=== PATIENT | female | born 1935 | race Caucasian/White ===

== ENCOUNTER 2018-01-27 15:40 | Emergency (ER) | payer MEDICARE, BC, OTHER ==
[~2018-01-27] VITALS: Ht 165.1 cm; Wt 66.3 kg
[~2018-01-27 15:40] MED LIST: ACETAMINOPHEN325 M1 PO; ALEVE220 MG PO; AMLODIPINE BESYL5 MG PO; ARICEPT 5 MG TAB5 MG PO; ARTIFICIAL TEA1 EACH INTRAOCULR; ASPIRIN325 PO; BIOTIN 500 MCG PO; BIOTIN5 M1 PO; BIOTIN5 MG PO; CLARITIN10 MG PO; CLONAZEPAM 0.50.5 M1 PO; DICLOFENAC SODI75 MG PO; DOCUSATE SODIU100 MG PO; EFFEXOR XR150 MG PO; EFFEXOR XR75 MG PO; EFFEXOR75 MG PO; Effexor PO; FISH OIL 1,2001 EAC3 PO; FLONASE 0.05%50 MCG NASAL; FOLIC ACID 40400 MC1 PO; HYDROCODON-ACE1 EAC7 PO; HYDROXYCHLOROQ200 M1 PO; IRON325 PO; LISINOPRIL10 MG PO; LOVASTAT40; LOVASTATIN 20 M20 MG PO; LOVENOX; METAMUCIL1 EAC1 PO; MEVACOR40 MG PO; MILK OF MA2400 MG/10 PO; MURO-12815 ML/BOT; NITROFURANTOIN100 MG PO; NORCO 10-325 T1 EAC1 PO; ONE-A-DAY WOMENS PO; OXYCODONE HCL5 M1 PO; OXYIR5 MG PO; PEPCID20 MG PO; PERCOCET 5-3251 EACH PO; PLAVIX 75 MG TA75 MG PO; PRINIVIL5 MG PO; PROPOXY-N-APAP1 EACH PO; PROTONIX40 M2 PO; SANCTURA20 MG PO; SENEXON-S TABL1 EACH PO; SUPER B COMPLE1 EAC2 PO; TRAMADOL 50 MG50 MG PO; VENLAFAXIN75 MG/1 T2 PO; VITAMIN B-12500 MCG PO; VITAMIN E400 UNI6 PO; XARELTO10 M1 PO; ZANTAC 150MG T150 MG PO; ZINC CHELATE50 MG PO
[2018-01-27] MEDS ORDERED: ZYRTEC 10 MG TA10 MG PO (15:53)
[2018-01-27] MEDS ORDERED: CEROVITE SENIO1 EACH PO (15:53)
[2018-01-27 16:03] LABS: ABSOLUTE EOSINOPHILS 0.2 thou/uL (0.0-0.7); ABSOLUTE LYMPHOCYTES 1.7 thou/uL (0.8-5.3); ABSOLUTE MONOCYTES 0.7 thou/uL (0.0-1.2); ABSOLUTE NEUTROPHILS 3.2 thou/uL (1.6-8.1); BASOPHILS 0.4 %; EOSINOPHILS 3.4 %; HEMATOCRIT 36.3 % (37.0-47.0); HEMOGLOBIN 11.8 gm/dL (12.0-15.0); LYMPHOCYTES 28.5 %; MCH 31.3 pg (26.0-34.0); MCHC 32.4 g/dL (28.0-37.0); MCV 96.8 fL (80.0-100.0); MONOCYTES 12.4 %; MPV 7.9 fl. (7.2-11.1); NUCLEATED RBCS 0 /100WBC; PLATELET COUNT* 206 thou/uL (150-400); POLYS 55.3 %; RBC 3.75 mil/uL (4.20-5.00); RDW-CV 14.4 % (10.5-14.5); WBC 5.8 thou/uL (4.0-11.0)
[2018-01-27 16:16] LABS: APTT 26.1 Seconds (25.0-31.3)
[2018-01-27 16:18] LABS: CALCIUM 8.5 mg/dL (8.5-10.1); POTASSIUM 3.9 mmol/L (3.5-5.1)
[2018-01-27 16:29] LABS: ALBUMIN 2.9 g/dL (3.4-5.0); TOTAL BILIRUBIN 0.2 mg/dL (<0.1-1.0); TOTAL PROTEIN 6.3 g/dL (6.4-8.2)
[2018-01-27 16:40] VITALS: BP 115/57
[2018-01-27 16:44] LABS: URINE BILIRUBIN NEGATIVE (Negative); URINE BLOOD NEGATIVE (Negative); URINE CLARITY CLEAR; URINE COLOR YELLOW; URINE GLUCOSE-RANDOM NEGATIVE (Negative); URINE KETONES NEGATIVE (Negative); URINE LEUKOCYTES-REFLEX NEGATIVE (Negative); URINE NITRITE-REFLEX NEGATIVE (Negative); URINE PROTEIN NEGATIVE (Negative); URINE UROBILINOGEN 0.2 E.U./dl (0.2-1.0)
--- NOTE | 2018-01-28 17:28 | EKG ---
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
== END 2018-01-27 16:40 | disposition home or self-care (01) ==
LOC: M.ERS 15:40
PROVIDERS: Family Medicine
DX: S09.8XXA Other specified injuries of head, initial encounter (principal); K21.9 Gastro-esophageal reflux disease without esophagitis; I10 Essential (primary) hypertension; E78.5 Hyperlipidemia, unspecified; G30.9 Alzheimer's disease, unspecified; M19.90 Unspecified osteoarthritis, unspecified site; F32.9 Major depressive disorder, single episode, unspecified; Z86.2 Personal history of diseases of the blood and blood-forming organs and certain disorders involving the immune mechanism; Z96.643 Presence of artificial hip joint, bilateral; Z90.711 Acquired absence of uterus with remaining cervical stump; Z88.0 Allergy status to penicillin; Z88.8 Allergy status to other drugs, medicaments and biological substances; W01.0XXA Fall on same level from slipping, tripping and stumbling without subsequent striking against object, initial encounter; Y93.89 Activity, other specified; Y92.89 Other specified places as the place of occurrence of the external cause; Y99.8 Other external cause status

== ENCOUNTER 2021-01-24 08:37 | Emergency (ER) | payer MEDICARE, BC ==
[~2021-01-24] VITALS: Ht 162.6 cm; Wt 65.8 kg
[~2021-01-24 08:37] MED LIST changes: +CEROVITE SENIO1 EACH PO; +ZYRTEC 10 MG TA10 MG PO
[2021-01-24 09:20] LABS: ABSOLUTE EOSINOPHILS 0.2 thou/uL (0.0-0.7); ABSOLUTE LYMPHOCYTES 1.4 thou/uL (0.8-5.3); ABSOLUTE MONOCYTES 0.7 thou/uL (0.0-1.2); ABSOLUTE NEUTROPHILS 3.3 thou/uL (1.6-8.1); BASOPHILS 0.7 %; EOSINOPHILS 2.9 %; HEMATOCRIT 39.9 % (37.0-47.0); LYMPHOCYTES 25.7 %; MCH 31.7 pg (26.0-34.0); MCHC 32.6 g/dL (28.0-37.0); MCV 97.2 fL (80.0-100.0); MONOCYTES 12.1 %; MPV 7.8 fl. (7.2-11.1); NUCLEATED RBCS 0 /100WBC; PLATELET COUNT* 178 thou/uL (150-400); POLYS 58.6 %; RBC 4.11 mil/uL (4.20-5.00); RDW-CV 16.3 % (10.5-14.5); WBC 5.6 thou/uL (4.0-11.0)
[2021-01-24 09:33] LABS: CALCIUM 8.3 mg/dL (8.5-10.1); CREATININE 1.1 mg/dL (0.6-1.3)
[2021-01-24 09:41] LABS: CK-MB MASS 1.3 ng/mL (<0.5-3.6); TOTAL BILIRUBIN 0.4 mg/dL (<0.1-1.0); TOTAL PROTEIN 6.4 g/dL (6.4-8.2)
--- NOTE | 2021-01-24 09:47 | EKG ---
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: : 1935 Requested By: Tashi Solares Order Number: [id number] MD: Neto Burks Measurements Intervals [place] Rate: 61 P: 52 MA: 177 QRS: 133 QRSD: 102 T: -24 QT: 454 QTc: 458 Interpretive Statements Sinus rhythm Probable left atrial enlargement RVH with secondary repolarization abnrm Compared to ECG 01/27/2018 15:52:39 no change Electronically Signed On 01-24-2021 9:47:23 CDT by Neto Burks [email or web address] <ELECTRONICALLY SIGNED> By: Neto Burks MD, [facility] 01/24/21 0947 09 09 Neto Burks MD, [facility] /EPI
[2021-01-24 10:47] VITALS: BP 120/60
== END 2021-01-24 10:47 | disposition home or self-care (01) ==
LOC: M.ERS 08:37
PROVIDERS: Family Medicine
DX: R07.89 Other chest pain (principal); I10 Essential (primary) hypertension; K21.9 Gastro-esophageal reflux disease without esophagitis; E78.5 Hyperlipidemia, unspecified; M19.90 Unspecified osteoarthritis, unspecified site; Z96.643 Presence of artificial hip joint, bilateral; Z86.2 Personal history of diseases of the blood and blood-forming organs and certain disorders involving the immune mechanism; Z88.0 Allergy status to penicillin; Z90.711 Acquired absence of uterus with remaining cervical stump

== ENCOUNTER 2021-04-19 18:38 | Inpatient (IN) | payer MEDICARE, BC ==
[~2021-04-19] VITALS: Ht 167.6 cm; Wt 59.1 kg
[2021-04-19 18:45] VITALS: BP 114/60
[2021-04-19] MEDS ORDERED: [UNRECOGNIZED DRUG - OTHER] PO (19:00)
[2021-04-19] MEDS ORDERED: ACID REDUCER20 MG PO (19:00)
[2021-04-19] MEDS ORDERED: DIVALPROEX SOD125 M1 PO (19:00)
[2021-04-19] MEDS ORDERED: REMERON15 M2 PO (19:01)
[2021-04-19] MEDS ORDERED: LISINOPRIL5 MG PO (19:01)
[2021-04-19] MEDS ORDERED: SEROQUEL 25 MG25 MG PO (19:01)
[2021-04-19] MEDS ORDERED: PROAIR HFA8.5 GM INH (19:02)
[2021-04-19] MEDS ORDERED: BIOFREEZE118 ML TOP (19:02)
[2021-04-19] MEDS ORDERED: QUETIAPINE FUMA50 MG PO (19:02)
[2021-04-19 19:38] LABS: ABSOLUTE EOSINOPHILS 0.1 thou/uL (0.0-0.7); ABSOLUTE NEUTROPHILS 5.1 thou/uL (1.6-8.1); BASOPHILS 0.4 %; EOSINOPHILS 1.1 %; HEMATOCRIT 36.8 % (37.0-47.0); HEMOGLOBIN 11.9 gm/dL (12.0-15.0); MCH 32.1 pg (26.0-34.0); MCHC 32.3 g/dL (28.0-37.0); MCV 99.2 fL (80.0-100.0); MONOCYTES 13.9 %; MPV 8.2 fl. (7.2-11.1); NUCLEATED RBCS 0 /100WBC; PLATELET COUNT* 164 thou/uL (150-400); POLYS 70.6 %; RBC 3.71 mil/uL (4.20-5.00); RDW-CV 15.3 % (10.5-14.5); WBC 7.3 thou/uL (4.0-11.0)
[2021-04-19 19:47] LABS: CALCIUM 8.2 mg/dL (8.5-10.1); POTASSIUM 3.8 mmol/L (3.5-5.1)
[2021-04-19 19:51] LABS: ALBUMIN 2.9 g/dL (3.4-5.0); TOTAL BILIRUBIN 0.2 mg/dL (<0.1-1.0); TOTAL PROTEIN 6.3 g/dL (6.4-8.2)
[2021-04-19 22:56] LABS: BE -0.5 mmol/L (-2 to +3); PCO2 34.9 mmHg (35.0-45.0); PO2 90.2 mmHg (75.0-100.0)
[2021-04-19 23:00] VITALS: BP 110/66
[2021-04-19 23:30] VITALS: BP 125/56
--- NOTE | 2021-04-19 23:30 | NUR ---
RECEIVED REPORT FROM ER, PT TO UNIT PER CART. ORIENTED TO SELF ONLY, UNABLE TO ANSWER ADMISSION QUESTIONS AND FAMILY NOT HERE. O2 ON AT 3L/NC, O2 SAT 98% BUT PT REMOVING IT FREQ THEN DESATS EASILY. TELEMETRY APPLIED SHOWING SR. BED ALARM ON. WILL CONT TO MONITOR AND ASSIST NEEDED.
[2021-04-20 04:00] VITALS: BP 128/61
--- NOTE | 2021-04-20 06:13 | NUR ---
SLEPT WELL. PT FREQ REMOVING O2, NO SOA NOTED. MOVING SELF IN BED FOR COMFORT. TELEMETRY CONT TO SHOW SR. NO CHANGE IN ASSESSMENT.
[2021-04-20 08:10] VITALS: BP 120/60
--- NOTE | 2021-04-20 11:20 | EKG ---
[place] [address] ELECTROCARDIOGRAM REPORT Name: ANDREW JC Room: [address] ADM IN ..#: [id number] Admission: 04/19/21 Attend Phys: Kun Martinez Discharge: Date of : 34 Date of Service: 04/19/211940 Report #: [id number] THIS REPORT FOR: //name// [facility] ED Test Date: 2021-04-19 Test Time: 19:41:00 Pat Name: ANDREW JC Department: Room: [facility] Gender: F Director Of Strategic Sourcing: MA : 1935 Requested By: Erika Buckner Order Number: [id number] MD: Neto Burks Measurements Intervals [place] Rate: 77 P: 63 CT: 190 QRS: 122 QRSD: 108 T: -28 QT: 406 QTc: 460 Interpretive Statements Sinus rhythm Probable left atrial enlargement Probable RVH w/ secondary repol abnormality Compared to ECG 01/24/2021 09:02:33 No significant changes Electronically Signed On 04-20-2021 11:19:58 CDT by Neto Burks [email or web address] <ELECTRONICALLY SIGNED> By: Neto Burks MD, FACC 04/20/21 1119 40 40 Neto Burks MD, FAC /EPI
[2021-04-20 11:56] VITALS: BP 130/54
--- NOTE | 2021-04-20 15:51 | NUR ---
CM ASSESSMENT: CM SPOKE TO PT'S DTR AND SHE INFORMS THAT THE PT CURRENTLY RESIDES AT THE [facility]. PT USES A WALKER FOR MOBILITY. CM SPOKE TO THE [facility] ADMISSIONS AND THEY INFORM THAT THE PT RESIDES ON THE MEMORY CARE UNIT IN THE ASSISTED LIVING FACILITY AND THAT THE PT HAS A DEMENTIA DX. PT REQUIRES ASSIST WITH BATHING AND DRESSING, AND PT ABLE TO FEED HERSELF. PT CURRENTLY ON 3L O2 AND THE [facility] INFORMS OF INABILITY TO ACCEPT THE PT WITH HOME OXYGEN, THEY ARE NOT ABLE TO ACCOMODATE THIS. CM WILL REMAIN AVAILABLE TO ASSIST AND FOLLOW NEEDED.
[2021-04-20 16:00] VITALS: BP 128/71
--- NOTE | 2021-04-20 16:03 | CON ---
[address] [address] CONSULTATION Name: BABITAANDREW E Room: [address] IN [place]ardo.#: [id number] Admission: 04/19/21 Attend Phys: Adam Sánchez Discharge: Date of : 34 Report #: [id number] THIS REPORT FOR: cc: Stephany Burnette Kathryn C. DO Blick, David R. MD [facility] ~ DATE OF CONSULTATION: 04/20/2021 CARDIOLOGY CONSULTATION HISTORY OF PRESENT ILLNESS: The patient is an 85-year-old white female who I was asked to see in the hospital today after she is noted to have an abnormal troponin. The patient lives in a long-term care and has a history of dementia. She has never been here to [place] before. She was brought to the hospital yesterday evening by ambulance. She lives in a memory care unit. She apparently has been coughing and was noted to be hypoxic. Her daughter who is her DPOA recommended she be brought to the hospital. The history is obtained from the patient. There are no family members available at this time. The patient is confused, does not know where she is, what time it is. PAST MEDICAL HISTORY: Significant for tonsillectomy, hemorrhoidectomy, back surgery, hypertension, hip replacement, cataract surgery, dementia, anemia, urinary retention. She wears Depends. MEDICATIONS: At the memory unit include Zyrtec, famotidine, lisinopril, Remeron, Seroquel, ProAir, clopidogrel, Effexor, Aricept. ALLERGIES: SHE HAS AN ALLERGY TO PENICILLIN. SOCIAL HISTORY: She is a nonsmoker. REVIEW OF SYSTEMS: Otherwise, cannot be obtained. PHYSICAL EXAMINATION: GENERAL: Revealed an elderly, frail-appearing female, lying in bed. She appeared in no acute distress. VITAL SIGNS: She had a blood pressure of 120/60, pulse is 80. She is afebrile. HEENT: She was anicteric. Conjunctivae are pink. Mucous membranes moist. NECK: Veins not appear distended. CHEST: Revealed crackles in both lung pedersen. HEART: Regular rate and rhythm. There was a grade 4 systolic ejection murmur at left sternal border. ABDOMEN: Soft. EXTREMITIES: Had no edema. Dorsalis pedis pulse cannot be palpated. SKIN: [place] [address] CONSULTATION Name: ANDREW JC Room: [address]#: [id number] Admission: 04/19/21 Attend Phys: Adam Sánchez Discharge: Date of : 34 Report #: [id number] NEUROLOGIC: The patient moves all extremities. LABORATORY DATA: Her ECG on admission yesterday showed a sinus rhythm, left axis, nonspecific T-wave changes. The patient had a portable chest x-ray performed in the emergency room last night that showed normal heart size, clear lung pedersen, some scarring noted. Previous CT scan of the head in 2018 here at [place] showed no acute abnormality, atrophy was noted. Her lab work, creatinine 1.0. Liver function studies were normal. Albumin 2.9. High sensitivity troponin was 144, repeat was 166. Her hematocrit 36.8. Her COVID antigen stat test was negative. IMPRESSION AND RECOMMENDATIONS: 1. Dementia. The patient unable to give any meaningful history. 2. Hypertension. The patient is on SKYE inhibitor. 3. Borderline troponin. No history of angina. No acute ECG changes. Suspect noncardiac. Recommend no further cardiac evaluation. <ELECTRONICALLY SIGNED> By: Neto Burks MD, FACC 04/20/21 1603 1233 1325Dajazlyn Burks MD, FACC /nt
--- NOTE | 2021-04-20 16:26 | 2DMMODE ---
[place] [address] 2 D/M-MODE ECHOCARDIOGRAM Name: ANDREW JC Room: [address] ADM [place] .[place].#: [id number] Admission: 04/19/21 Attend Phys: Kun Martinez Discharge: Date of : 33 Date of Service: 04/20/21 1626 Report #: [id number] THIS REPORT FOR: cc: Stephany Burnette Kathryn C. DO Blick, David R. MD [facility] ~ APPROVED REPORT Study performed: 04/20/2021 15:24:23 EXAM: Comprehensive 2D, Doppler, and color-flow Echocardiogram Patient Location: In-Patient Room #: [facility] Status: routine BSA: 1.64 HR: 79 bpm BP: 130/54 mmHg Rhythm: NSR Other Information Study Quality: Excellent Indications Abnormal ECG Dyspnea 2D Dimensions IVSd: 9.29 (7-11mm) LVOT Diam: 20.47 (18-24mm) LVDd: 31.23 mm PWd: 9.93 (7-11mm) Ascending Ao: 33.11 (22-36mm) LVDs: 16.18 (25-40mm) Aortic Root: 30.45 mm Volumes Left Atrial Volume (Systole) LA ESV Index: 33.00 mL/m2 Aortic Valve AoV Peak Juwan.: 3.15 m/s AO Peak Gr.: 39.70 mmHg LVOT Max P.89 mmHg AO Mean Gr.: 24.58 mmHg LVOT Mean P.48 mmHg LVOT Max V: 0.85 m/s AO V2 VTI: 70.64 cm LVOT Mean V: 0.56 m/s ALOK (VTI): 0.94 cm2 LVOT V1 VTI: 20.07 [place] [address] 2 D/M-MODE ECHOCARDIOGRAM Name: ANDREW JC Room: [address] IN ..#: [id number] Admission: 04/19/21 Attend Phys: Kun Martinez Discharge: Date of : 34 Date of Service: 04/20/21 1626 Report #: [id number] Mitral Valve MV Mean Gr.: 4.15 mmHg E/A Ratio: 0.67 MV Decel. Time: 400.29 ms MV E Max Juwan.: 1.09 m/s MV PHT: 116.09 ms MVA (PHT): 1.90 cm2 TDI E/Lateral E': 15.57 E/Medial E': 21.80 Medial E' Juwan.: 0.05 m/s Lateral E' Juwan.: 0.07 m/s Pulmonary Valve PV Peak Juwan.: 0.78 m/s PV Peak Gr.: 2.45 mmHg Tricuspid Valve RAP Estimate: 5.00 mmHg TR Peak Gr.: 60.17 mmHg RVSP: 65.00 mmHg PA Pressure: 65.00 mmHg Left Ventricle The left ventricle is normal size. There is normal LV segmental wall motion. There is normal left ventricular wall thickness. Left ventricular systolic function is normal. The left ventricular ejection fraction is within the normal range. LVEF is >70%. Grade I - abnormal relaxation pattern. Right Ventricle Right ventricle is dilated. The right ventricular systolic function is normal. Atria Left atrium is mildly dilated. Right atrium is dilated. Aortic Valve Aortic valve is calcified. No aortic regurgitation is present. Moderate aortic stenosis. Mitral Valve Moderate mitral annular calcification. The mitral valve is normal in structure. There is no mitral valve regurgitation noted. Moderate mitral stenosis. Tricuspid Valve The tricuspid valve is normal in structure[place] [address] 2 D/M-MODE ECHOCARDIOGRAM Name: ANDREW JC Room: [address]#: [id number] Admission: 04/19/21 Attend Phys: Kun Martinez Discharge: Date of : 33 Date of Service: 04/20/21 1626 Report #: [id number] regurgitation. estimated pa pressure 50 mm Hg Pulmonic Valve The pulmonary valve is normal in structure. Mild pulmonic regurgitation. Great Vessels The aortic root is normal in size. IVC is normal in size and collapses >50% with inspiration. Pericardium There is no pericardial effusion. <Conclusion> LVEF is >70%. Right ventricle is dilated. Left atrium is mildly dilated. Moderate aortic stenosis. Mild tricuspid regurgitation. estimated pa pressure 50 mm Hg <ELECTRONICALLY SIGNED> By: Neto Burks MD, FACC 04/20/21 1626 1626 1626 Neto Burks MD, FACC /INF
--- NOTE | 2021-04-20 18:15 | NUR ---
PT TAKES IVS OUT - DR DUNN OFF CALL, DR TORO EQUIPMENT OPERAT0R FOR HER. STATED OK TO LEAVE IV OUT OVERNIGHT, FOR DR DUNN TO REASSESS IN AM IF NECESSARY.
[2021-04-20 20:00] VITALS: BP 113/82
[2021-04-21 00:43] VITALS: BP 128/78
[2021-04-21 05:31] VITALS: BP 125/72
--- NOTE | 2021-04-21 05:38 | NUR ---
ASSUMED PT CARE AT APPROX 1930.PT IS AWAKE AND ORIENTED TO SELF.PT IS TRACING SR ON THE JUTE BAG SEWER. 02 SUPPORT AT 3L/NC. PT KEEPS ON TAKING OXYGEN OFF, AND WOULD DESATURATE TO THE LOW 80s. PT STARTED TO BECOME BELLIGERENT TOWARDS STAFF AND WOULD WANT TO PUT NASAL CANNULA ON. OLANZAPINE IM GIVEN PER AUG PER DR TORO. PT RESTED SOME, O2 IN PLACE.HIGH FALL PRECAUTIONS IN PLACE. CALL LIGHT WITHIN REACH. HOURLY ROUNDING DONE FOR PT SAFETY
[2021-04-21 09:00] VITALS: BP 132/80
[2021-04-21 10:52] LABS: BE -0.5 mmol/L (-2 to +3); PCO2 36.1 mmHg (35.0-45.0); PO2 72.5 mmHg (75.0-100.0)
[2021-04-21 11:29] LABS: ABSOLUTE LYMPHOCYTES 0.5 thou/uL (0.8-5.3); ABSOLUTE MONOCYTES 0.9 thou/uL (0.0-1.2); ABSOLUTE NEUTROPHILS 7.3 thou/uL (1.6-8.1); BASOPHILS 0.5 %; HEMATOCRIT 32.1 % (37.0-47.0); HEMOGLOBIN 10.5 gm/dL (12.0-15.0); LYMPHOCYTES 5.2 %; MCH 32.4 pg (26.0-34.0); MCHC 32.8 g/dL (28.0-37.0); MCV 98.8 fL (80.0-100.0); MONOCYTES 10.5 %; NUCLEATED RBCS 0 /100WBC; PLATELET COUNT* 148 thou/uL (150-400); POLYS 83.8 %; RBC 3.25 mil/uL (4.20-5.00); WBC 8.7 thou/uL (4.0-11.0)
[2021-04-21 11:43] LABS: CALCIUM 8.1 mg/dL (8.5-10.1); CREATININE 0.9 mg/dL (0.6-1.3); MAGNESIUM 1.8 mg/dL (1.8-2.4); POTASSIUM 3.8 mmol/L (3.5-5.1); TOTAL BILIRUBIN 0.3 mg/dL (<0.1-1.0); TOTAL PROTEIN 6.3 g/dL (6.4-8.2)
[2021-04-21 12:00] VITALS: BP 132/70
[2021-04-21 12:29] LABS: ESR (SEDRATE) 19 mm/hr (0-30)
[2021-04-21 16:00] VITALS: BP 100/47
[2021-04-21 17:13] LABS: BE 6.3 mmol/L (-2 to +3); PCO2 40.7 mmHg (35.0-45.0); pH 7.488 (7.340-7.450)
[2021-04-21 17:17] LABS: PO2 49.8 mmHg (75.0-100.0)
[2021-04-21 19:12] LABS: CALCIUM 8.3 mg/dL (8.5-10.1); MAGNESIUM 1.8 mg/dL (1.8-2.4); POTASSIUM 3.6 mmol/L (3.5-5.1)
[2021-04-21 19:16] LABS: APTT 26.7 Seconds (25.0-31.3); INR 1.1; PROTIME 10.9 Seconds (9.20-11.50)
[2021-04-21 20:00] VITALS: BP 128/63
[2021-04-22 01:28] VITALS: BP 125/62
[2021-04-22 04:53] LABS: HEMOGLOBIN 11.3 gm/dL (12.0-15.0); MCH 32.1 pg (26.0-34.0); MCHC 32.4 g/dL (28.0-37.0); MPV 8.3 fl. (7.2-11.1); NUCLEATED RBCS 0 /100WBC; PLATELET COUNT* 149 thou/uL (150-400); RBC 3.53 mil/uL (4.20-5.00); RDW-CV 15.5 % (10.5-14.5); WBC 6.2 thou/uL (4.0-11.0)
[2021-04-22 05:10] LABS: ALBUMIN 2.8 g/dL (3.4-5.0); CREATININE 1.1 mg/dL (0.6-1.3); MAGNESIUM 2.6 mg/dL (1.8-2.4); TOTAL BILIRUBIN 0.5 mg/dL (<0.1-1.0); TOTAL PROTEIN 6.7 g/dL (6.4-8.2)
[2021-04-22 05:15] VITALS: BP 105/60
[2021-04-22 05:47] LABS: POTASSIUM 2.7 mmol/L (3.5-5.1)
[2021-04-22 07:07] LABS: ABSOLUTE LYMPHOCYTES 0.7 thou/uL (0.8-5.3); ABSOLUTE MONOCYTES 0.2 thou/uL (0.0-1.2); ABSOLUTE NEUTROPHILS 5.3 thou/uL (1.6-8.1); PLATELET ESTIMATE DECREASED; TOXIC GRANULATION 1+
--- NOTE | 2021-04-22 08:01 | NUR ---
ASSUMED PT CARE AT APPROX 1930. PT IS ASLEEP, AWAKENS WHEN NAME IS CALLED BUT WOULD GO BACK TO SLEEP. PT IS TRACING SR/SB ON THE TELECOMMUNICATIONS OPERATOR. PT IS ON 15L OF O2/HFNC, spO2 IS BETWEEN 92-99%, PT WOULD SOMETIMES TAKE O2 OFF AND WOULD DESAT TO THE LOW 80s. D-DIMER IS ELEVATED, DR BEE AND DR YIN INFORMED. CTA OF THE CHEST ORDERED BY DR BEE AND DONE-RESULTS RELAYED TO DR BEE. SERUM K IS CRITICALLY LOW-K REPLETION IN PROGRESS. PT DIURESED WELL AFTER LASIX, PT HAS BEEN INCONTINENT OF BOWEL AND BLADDER. PT IS KEPT CLEAN AND DRY. POSITION CHANGES DONE. FAMILY AT BEDSIDE AND IS UPDATED ON PT STATUS. PT IS CLOSELY MONITORED.
[2021-04-22 08:26] VITALS: BP 130/63
[2021-04-22 12:00] VITALS: BP 89/44
[2021-04-22 16:00] VITALS: BP 120/57
--- NOTE | 2021-04-22 17:07 | NUR ---
PT TITRATED FROM 15L TO 3L THIS SHIFT. PTS CONTINUOUS O2 SAT 94% ON THIS 3L VIA NC. DR DUNN AND RT NOTIFIED. DR BEE VERBALLY STATED POSSIBLE D/C OF ABX TOMORROW. PTS DAUGHTER, DPOA, PLANNING TO MOVE PT FROM [facility] TO OTHER JAIL THAT WILL TAKE OXYGEN, [facility] WILL NOT. STATED SHE HAS ALREADY MOVED PTS BELONGINGS FROM HER [facility] ROOM.
[2021-04-22 20:00] VITALS: BP 132/63
[2021-04-23] VITALS: BP 108/54
[2021-04-23 04:00] VITALS: BP 119/45
[2021-04-23 05:25] LABS: ABSOLUTE NEUTROPHILS 5.2 thou/uL (1.6-8.1); BASOPHILS 0.2 %; EOSINOPHILS 0.1 %; HEMATOCRIT 35.5 % (37.0-47.0); HEMOGLOBIN 11.4 gm/dL (12.0-15.0); LYMPHOCYTES 13.9 %; MCH 32.1 pg (26.0-34.0); MCHC 32.1 g/dL (28.0-37.0); MONOCYTES 14.2 %; MPV 8.3 fl. (7.2-11.1); NUCLEATED RBCS 0 /100WBC; PLATELET COUNT* 171 thou/uL (150-400); POLYS 71.6 %; RBC 3.55 mil/uL (4.20-5.00); RDW-CV 15.1 % (10.5-14.5); WBC 7.3 thou/uL (4.0-11.0)
[2021-04-23 05:49] LABS: ALBUMIN 2.5 g/dL (3.4-5.0); CALCIUM 8.3 mg/dL (8.5-10.1); CREATININE 0.9 mg/dL (0.6-1.3); MAGNESIUM 2.5 mg/dL (1.8-2.4); POTASSIUM 4.4 mmol/L (3.5-5.1); TOTAL BILIRUBIN 0.3 mg/dL (<0.1-1.0); TOTAL PROTEIN 6.2 g/dL (6.4-8.2)
--- NOTE | 2021-04-23 06:59 | NUR ---
PT SLEEPING MOST OF SHIFT. ASSESSMENT DOCUMENTED. MEDS GIVEN PER E-AUG. IV PATENT, ABX INFUSING. PT AGGITATED AND PULLING OFF O2 AT TIMES THIS SHIFT. DTR CALLED AND WAS ABLE TO REDIRECT PT. FALL PRECAUTIONS IN PLACE. WILL CONTINUE WITH PLAN OF CARE.
[2021-04-23 08:07] VITALS: BP 131/57
[2021-04-23 11:39] VITALS: BP 120/66
--- NOTE | 2021-04-23 16:02 | NUR ---
PLAN OF CARE: PHYSICIAN INFORMS OF PLAN FOR THE PT TO D/C TO [facility] WITH [facility]. PT REMAINS ON 3L O2. PT'S DTR REQUEST TO D/C WITH HOSPICE. HOSPICE CONSULT PLACED. CM TO CONTACT PT'S DTR TO DISCUSS CHOICE OF HOSPICE. CM WILL REMAIN AVAILABLE TO ASSIST AND FOLLOW NEEDED.
--- NOTE | 2021-04-23 17:01 | NUR ---
PT TITRATED DOWN TO 2L VIA NC THIS SHIFT. NO ACUTE EVENTS. PTS DAUGHTER WISHES TO CONSULT HOSPICE, DR DUNN AND SOCIAL WORK AWARE.
[2021-04-23 17:07] VITALS: BP 122/67
[2021-04-23 20:00] VITALS: BP 119/70
--- NOTE | 2021-04-23 20:00 | NUR ---
RECEIVED REPORT AND ASSUMED CARE OF PT, ASSESSMENT COMPLETED. PT ORIENTED TO SELF ONLY, PLEASANT AND COOPERATIVE BUT CONSTANTLY REMOVING O2, GOWN OR TELE MONITOR. OSTEOPATHIC RESIDENT SHOWING SR. WILL CONT TO MONITOR AND ASSIST NEEDED.
[2021-04-24 00:54] VITALS: BP 117/72
[2021-04-24 05:02] VITALS: BP 149/56
--- NOTE | 2021-04-24 06:45 | NUR ---
RESTLESS MOST OF NIGHT. AGITATED, REFUSING RESP TX. INCONT OF B&B. O2 INCREASED TO 4L/NC. TELEMETRY CONT TO SHOW SR. HS GOALS OF REST AND SAFETY ACHIEVED.
[2021-04-24 08:05] VITALS: BP 150/66
[2021-04-24] MEDS ORDERED: PREDNISONE 10 M10 MG PO (09:28)
[2021-04-24] MEDS ORDERED: LEVOFLOXACIN500 MG PO (09:28)
--- NOTE | 2021-04-24 10:41 | NUR ---
REPORT GIVEN TO [facility] NURSEAARON.
--- NOTE | 2021-04-24 13:40 | NUR ---
DAUGHTER, ALFONZO, AWARE OF PT DISCHARGE. AWARE OF TIME OF 2 PM. SIGNED DNR ON CHART. IV AND TELE REMOVED.
--- NOTE | 2021-04-24 15:32 | NUR ---
PHYSICIAN INFORMS OF PLAN FOR THE PT TO D/C TODAY TO LTC AT [facility] WITH [facility] PER PT AND DTR REQUEST. CM FAXED PT'C D/C ORDERS TO BOTH. [facility] TRANSPORT ARRANGED AND RN CALLED REPORT. CM WILL REMAIN AVAILABLE TO ASSIST AND FOLLOW NEEDED.
--- NOTE | 2021-04-24 21:40 | CON ---
[address] [address] CONSULTATION Name: ANDREW JC Room: [address]#: [id number] Admission: 04/19/21 Attend Phys: Adam Sánchez Discharge: 04/24/21 Date of : 34 Report #: [id number] THIS REPORT FOR: cc: Stephany Burnette Kathryn C. DO Pervez, Adeel MD ~ DATE OF CONSULTATION: 04/22/2021 REQUESTING PHYSICIAN: Consult has been requested by Dr. Martinez. INDICATION FOR CONSULTATION: Acute hypoxemic respiratory failure. HISTORY OF PRESENT ILLNESS: An 85-year-old female. She has no known previous history of pulmonary hypertension or other respiratory disease. She also has no known history of smoking. She does reside at a long-term care facility where there has been a recent outbreak of RSV viral infection. The patient is not reported to be on supplemental oxygen at home and has dementia. At this time, the patient is transferred here for hypoxemia and coughing as well as shortness of breath. On initial arrival, she was requiring 3 liters of oxygen to maintain O2 saturation in the low 90s. Her oxygen needs in fact increased yesterday to where we were needing 15 liters of oxygen to maintain O2 saturation in the low 90s. An echocardiogram had also been performed, which showed a pulmonary artery systolic pressure of 65. The patient was already on broad-spectrum antibiotics. When I saw her yesterday, was on vancomycin as well as Zosyn. I did go ahead and diurese her yesterday. I also give her some Solu-Medrol. She already was on p.o. prednisone. Considering significant pulmonary hypertension, we decided to also proceed with a CTA chest, which in fact only shows some small infiltrates at bilateral lung bases and there are no pulmonary emboli identified. Overall, the patient appears to be doing significantly better than yesterday, in fact now down to 3 liters nasal cannula from 15 liters yesterday. O2 saturation still is in the high 90s. The patient was sleeping at the time of my evaluation and only partially woke up when I aroused her; however, the patient's nurse reports that earlier she has been fully awake, but confused. The patient has dementia. She is unable to provide a further history or review of systems. PAST MEDICAL HISTORY: There is severe pulmonary hypertension on echocardiogram performed now. It is unknown as to whether she has had pulmonary hypertension in the past. Left ventricular ejection fraction is greater than 70. There is no documentation of a history of respiratory disease. She also does have moderate aortic stenosis, dementia, also history of hypertension, gastroesophageal reflux disease, hyperlipidemia, urinary retention, osteoarthritis, depression, back surgeries x 3, surgeries for tonsil, D and C and hemorrhoids, [place] [address] CONSULTATION Name: ANDREW JC Room: [address] IN [facility].#: [id number] Admission: 04/19/21 Attend Phys: Adam Sánchez Discharge: 04/24/21 Date of : 34 Report #: [id number] SOCIAL HISTORY: There is no known history of smoking, ethanol abuse or drug abuse. She is reported to be living in a facility where there is an RSV viral infection outbreak. CURRENT MEDICATIONS: List in [facility] reviewed. HOME MEDICATIONS: List in [facility] reviewed. FAMILY HISTORY: Unable to obtain. ALLERGIES: I doubt that the information regarding her history of penicillin allergy is correct. She is currently on Zosyn and is tolerating without problems, therefore, likely does not have a penicillin allergy. ALSO ALLERGIC TO CERTAIN ADHESIVES. PHYSICAL EXAMINATION: GENERAL: She was asleep at the time of my evaluation, reported to have earlier been fully awake. VITAL SIGNS: Has a pulse of 61. Last blood pressure is 89/44; however, this is an isolated reading. Her blood pressure earlier this morning was 130/63. We are repeating blood pressure. Saturating 99% on 3 liters nasal cannula. Respiratory rate 16-17, not in any distress. Temperature is 37.3, did have a high-grade fever yesterday of 39.2. HEENT: Head is normocephalic and atraumatic. NECK: Does not show raised JVP, asymmetry, mass or lymph nodes. CHEST: Symmetrical expansion on inspection and palpation. On auscultation, breath sounds are bilaterally equal. No added sounds. HEART: Regular. There is no murmur. ABDOMEN: Soft and nontender. EXTREMITIES: Lower extremities show no edema and no calf tenderness. LABORATORY DATA: The patient's chest x-ray repeated 3 times in [facility] reviewed. It appears likely that the patient had some increase in pulmonary vascular congestion earlier, which has now improved. There are some interstitial infiltrates as well as bilateral basilar infiltrates. The patient's lab work and arterial blood gas in [facility] reviewed. ASSESSMENT/PLAN: 1. Acute hypoxemic respiratory failure. History is consistent with respiratory tract infection. Note that she has tested negative for COVID-19 antigen, but there is an RSV infection at the facility she is residing at. Likely she has a secondary bacterial infection as well. Also in the background, the patient does appear to have fairly significant pulmonary hypertension as well as aortic [place] [address] CONSULTATION Name: ANDREW JC Room: [address] IN M.R.#: [id number] Admission: 04/19/21 Attend Phys: Adam Sánchez Discharge: 04/24/21 Date of : 34 Report #: [id number] stenosis. At this time, we will continue to titrate her oxygen, wean down to 3 liters. Also, we will continue with prednisone as well as nebulized bronchodilators. I did give her additional Solu-Medrol yesterday. 2. Viral respiratory tract infection. Her COVID-19 antigen is negative. There is a respiratory syncytial virus outbreak at the facility she resides at. The viral respiratory panel is pending at this time. 3. Secondary bacterial pneumonia. There are some small, but definite infiltrates at bilateral lung bases on the CTA chest. This is consistent with her secondary bacterial infection. I would continue with antibiotics; however, we likely will be able to cut back soon. If she continues to improve, then I intend to discontinue linezolid tomorrow and we will decide as to whether to switch her azithromycin to doxycycline. For now, we will continue with Zosyn. Several cultures and serologies have been sent. 4. Pulmonary hypertension, pulmonary artery systolic noted to be 65 per calculation and 50 per visual assessment on the echo. I did therefore have a CTA chest performed, which does not show any pulmonary emboli. We will also go ahead and do venous Dopplers as D-dimer was also elevated. I do not have a previous echo to compare, therefore, unknown if this is acute or chronic. I feel that in this patient therapy will be primarily supportive if no clots are found. She may benefit from long-term oxygen while asleep even if she comes off oxygen during the daytime. 5. Moderate aortic stenosis. Cardiology Service has been on the case. Therefore, I would defer to Cardiology. 6. History of depression. She was on venlafaxine. I held venlafaxine while she is on linezolid and I chose to give her linezolid instead of vancomycin to avoid nephrotoxicity. We will plan to restart venlafaxine whenever linezolid is discontinued. 7. History of dementia. 8. Deep venous thrombosis prophylaxis. We will give her Lovenox. Note that she is also on Plavix. 9. Clostridium difficile prophylaxis. Lactinex. 10. Fluid overload/hypokalemia. It appears likely to me that earlier she was fluid overloaded. She no longer appears fluid overloaded now. Her potassium did drop with diuresis. It is being replaced. Thanks for this consultation. <ELECTRONICALLY SIGNED> By: Fortunato Alvarado MD 04/24/21 2140 1338 1817Amartina Alvarado MD /nt
== END 2021-04-24 14:32 | DRG 871 ==
LOC: M.ERS 18:38 → M.2W 21:46 → M.TBA-ER 21:46 → M.2W 23:13
PROVIDERS: Emergency Medicine; Internal Medicine; Internal Medicine Critical Care Medicine; Physician Assistant; ADMIT Internal Medicine; ATTEND Internal Medicine
PROC: 5A0935A Assistance with Respiratory Ventilation, Less than 24 Consecutive Hours, High Flow/Velocity Cannula (ICD-10-PCS; principal; 2021-04-21)
PROC: 5A0935A Assistance with Respiratory Ventilation, Less than 24 Consecutive Hours, High Flow/Velocity Cannula (ICD-10-PCS; 2021-04-22)
PROC: 5A0935A Assistance with Respiratory Ventilation, Less than 24 Consecutive Hours, High Flow/Velocity Cannula (ICD-10-PCS; 2021-04-24)
DX: A41.9 Sepsis, unspecified organism (principal); J96.01 Acute respiratory failure with hypoxia; J15.6 Pneumonia due to other Gram-negative bacteria; J12.1 Respiratory syncytial virus pneumonia; Z20.822 Contact with and (suspected) exposure to COVID-19; I10 Essential (primary) hypertension; F03.90 Unspecified dementia, unspecified severity, without behavioral disturbance, psychotic disturbance, mood disturbance, and anxiety; E78.5 Hyperlipidemia, unspecified; K21.9 Gastro-esophageal reflux disease without esophagitis; M19.90 Unspecified osteoarthritis, unspecified site; I27.20 Pulmonary hypertension, unspecified; E87.6 Hypokalemia; E87.70 Fluid overload, unspecified; F32.9 Major depressive disorder, single episode, unspecified; I35.0 Nonrheumatic aortic (valve) stenosis; Z96.643 Presence of artificial hip joint, bilateral; I25.10 Atherosclerotic heart disease of native coronary artery without angina pectoris; Z66 Do not resuscitate; Z23 Encounter for immunization; Z98.49 Cataract extraction status, unspecified eye; Z88.0 Allergy status to penicillin; Z98.42 Cataract extraction status, left eye; Z98.41 Cataract extraction status, right eye; Z88.8 Allergy status to other drugs, medicaments and biological substances